=== PATIENT | female | born 1990 | race Asian ===

== ENCOUNTER 2017-02-17 10:55 | Inpatient (IN) | payer SELFPAY ==
[~2017-02-17] VITALS: Ht 160 cm; Wt 60.3 kg
[2017-02-17] MEDS ORDERED: LACTATED RINGERS 1,000 ML IV SCH (11:59)
[2017-02-17] MEDS ORDERED: PREN-380 PO (12:13)
[2017-02-17 12:30] LABS: BASOPHILS % (AUTO) 0.4 % (0.0-2.0); EOSINOPHILS % (AUTO) 0.6 % (0.0-4.0); HEMATOCRIT 38.9 % (36-48); HEMOGLOBIN 12.8 g/dL (12.0-16.0); LYMPHOCYTES # (AUTO) 1.4 K/uL (2.5-16.5); LYMPHOCYTES % (AUTO) 17.5 % (20.5-51.1); MEAN CORPUSCULAR HEMOGLOBIN 30 pg (27-31); MEAN CORPUSCULAR HGB CONC 33 g/dL (33-37); MEAN CORPUSCULAR VOLUME 92 fL (80-94); MONOCYTES # (AUTO) 0.3 K/uL (0.8-1.0); MONOCYTES % (AUTO) 3.6 % (1.7-9.3); NEUTROPHILS # (AUTO) 6.1 K/uL (1.8-7.7); NEUTROPHILS % (AUTO) 77.9 % (42.2-75.2); PLATELET COUNT (AUTO) 172 K/uL (140-450); RED BLOOD CELL COUNT(AUTO) 4.22 MIL/uL (4.20-5.40); RED CELL DISTRIBUTION WIDTH 12.7 % (11.6-13.7); WHITE BLOOD COUNT (AUTO) 7.8 K/uL (4.8-10.8)
[2017-02-17 12:30] LABS: BILIRUBIN,URINE NEGATIVE (NEGATIVE); BLOOD, URINE NEGATIVE (NEGATIVE); COLOR,URINE YELLOW (YELLOW); LEUKOCYTE ESTERASE ,URINE NEGATIVE (NEGATIVE); UGLUCOSE NEGATIVE (NEGATIVE)
[2017-02-17 12:43] LABS: APPEARANCE,URINE SLIGHTLY HAZY (CLEAR); NITRITE, URINE POSITIVE (NEGATIVE); RBC,URINE 0-5 (RARE) /HPF (0-5); WBC,URINE 0-5 (RARE) /HPF (0-5)
[2017-02-17 12:45] LABS: ANION GAP 11.6 (8-16); CARBON DIOXIDE 23.2 mmol/L (21-32); CREATININE 0.6 mg/dL (0.6-1.3); POTASSIUM 3.8 mmol/L (3.5-5.1)
[2017-02-17 12:50] LABS: ALBUMIN 2.5 g/dL (3.4-5.0); TOTAL BILIRUBIN 0.3 mg/dL (0.0-1.0)
[2017-02-17] MEDS ORDERED: TRIAMCINOLONE 10 MG/ML 5ML VIAL ONE (15:22)
[2017-02-17] MEDS ORDERED: OXYTOCIN 10 UNITS/ML VIAL ONE (15:22)
[2017-02-17] MEDS ORDERED: METHYLERGONOVINE 0.2 MG/ML AMP ONE (15:24)
[2017-02-17] MEDS ORDERED: PNEUMOCOCCAL VACCINE 23 MCG/0.5 ML VIAL IMVAC SCH (15:35)
[2017-02-17] MEDS ORDERED: BUPIVACAINE-MPF 0.75% 10 ML VIAL INJ ONE (15:50)
[2017-02-17] MEDS ORDERED: fentaNYL 0.05 MG/ML VIAL ONE (15:59)
[2017-02-17] MEDS ORDERED: MORPHINE PRES FREE 10 MG/10 ML AMP IV ONE (15:59)
[2017-02-17] MEDS ORDERED: ceFAZolin 1,000 MG VIAL IVP ONE (16:00)
[2017-02-17] MEDS ORDERED: ONDANSETRON 4 MG/2 ML VIAL IVP PRN ×2 (16:10)
[2017-02-17] MEDS ORDERED: NALOXONE 0.4 MG/ML VIAL IVP PRN ×3 (16:10)
[2017-02-17] MEDS ORDERED: NALBUPHINE 10 MG/ML AMP IVP PRN (16:10)
[2017-02-17] MEDS ORDERED: KETOROLAC 60 MG/2 ML VIAL IM PRN (16:10)
[2017-02-17] MEDS ORDERED: diphenhydrAMINE 50 MG/ML VIAL ONE (16:23)
[2017-02-17] MEDS ORDERED: ONDANSETRON 4 MG/2 ML VIAL ONE (16:23)
[2017-02-17] MEDS ORDERED: OXYTOCIN 20 UNITS/LR PREMIX 1,000 ML IV ONE (16:23)
[2017-02-17] MEDS ORDERED: oxyCODONE/APAP 5/325 MG 1 TAB TAB PO PRN (16:35)
[2017-02-17] MEDS ORDERED: IBUPROFEN 800 MG TAB PO PRN (16:35)
[2017-02-17] MEDS ORDERED: TRIMETHOBENZAMIDE 200 MG/2 ML SYR IM PRN (16:35)
[2017-02-17] MEDS ORDERED: HYDROcodone/APAP 5/325 MG 1 TAB TAB PO PRN (16:35)
[2017-02-17] MEDS ORDERED: TEMAZEPAM 15 MG CAP PO PRN (16:35)
[2017-02-17] MEDS ORDERED: METHYLERGONOVINE 0.2 MG/ML AMP IM PRN (16:35)
[2017-02-17] MEDS ORDERED: MEASLES, MUMPS, AND RUBELLA 1 VIAL SQVAC PRN (16:35)
[2017-02-17] MEDS: diphenhydrAMINE 50 MG/ML VIAL IVP PRN ×2 (16:55→21:08)
[2017-02-17] MEDS: DOCUSATE SOD/SENNA 50/8.6 MG 1 TAB PO SCH (20:53)
[2017-02-18] MEDS ORDERED: OXYTOCIN 20 UNITS/LR PREMIX 1,000 ML IV ONE (00:18)
[2017-02-18] MEDS: OXYTOCIN 20 UNITS in LACTATED RINGERS 1,000 ML IV SCH ×2 (00:20→08:44)
[2017-02-18 07:30] LABS: BASOPHILS % (AUTO) 0.4 % (0.0-2.0); EOSINOPHILS # (AUTO) 0.1 K/uL (0-0.4); EOSINOPHILS % (AUTO) 0.7 % (0.0-4.0); HEMATOCRIT 38.2 % (36-48); HEMOGLOBIN 12.6 g/dL (12.0-16.0); LYMPHOCYTES # (AUTO) 1.4 K/uL (2.5-16.5); LYMPHOCYTES % (AUTO) 11.2 % (20.5-51.1); MEAN CORPUSCULAR HEMOGLOBIN 30 pg (27-31); MEAN CORPUSCULAR HGB CONC 33 g/dL (33-37); MEAN CORPUSCULAR VOLUME 92 fL (80-94); MONOCYTES # (AUTO) 0.4 K/uL (0.8-1.0); MONOCYTES % (AUTO) 3.7 % (1.7-9.3); NEUTROPHILS # (AUTO) 10.2 K/uL (1.8-7.7); PLATELET COUNT (AUTO) 161 K/uL (140-450); RED BLOOD CELL COUNT(AUTO) 4.17 MIL/uL (4.20-5.40); RED CELL DISTRIBUTION WIDTH 12.4 % (11.6-13.7)
[2017-02-18 07:31] LABS: WHITE BLOOD COUNT (AUTO) 12.1 K/uL (4.8-10.8)
[2017-02-18] MEDS ORDERED: OXYTOCIN 10 UNITS/ML VIAL ONE (08:41)
[2017-02-18] MEDS: SIMETHICONE 80 MG TAB.CHEW PO PRN ×2 (08:44→13:19)
--- NOTE | 2017-02-18 09:11 | NUR ---
PATIENT HAS BEEN SCREENED AND CATEGORIZED LOW NUTRITION RISK. PATIENT WILL BE SEEN WITHIN 7 DAYS OF ADMISSION. 02/23/[address]
[2017-02-18] MEDS: DOCUSATE SOD/SENNA 50/8.6 MG 1 TAB PO SCH (20:51)
[2017-02-19 13:14] LABS: RAPID PLASMA REAGIN NON-REACTIVE (Non Reactiv)
[2017-02-19] MEDS: DOCUSATE SOD/SENNA 50/8.6 MG 1 TAB PO SCH (21:00)
== END 2017-02-20 15:40 | disposition home or self-care (01) | DRG 765 ==
LOC: MLD 11:25 → MFCC 17:40
PROVIDERS: ADMIT Obstetrics & Gynecology; ATTEND Obstetrics & Gynecology
PROC: 10D00Z1 Extraction of Products of Conception, Low, Open Approach (ICD-10-PCS; principal; 2017-02-17 15:30)
DX: O34.211 Maternal care for low transverse scar from previous cesarean delivery (principal); O98.42 Viral hepatitis complicating childbirth; B19.10 Unspecified viral hepatitis B without hepatic coma; Z37.0 Single live birth; O69.81X0 Labor and delivery complicated by cord around neck, without compression, not applicable or unspecified; Z3A.39 39 weeks gestation of pregnancy
CPT/HCPCS: 36415; 51702; 80053; 81001; 85025; 86592; 86886; 86900; 86901; 90715; J0690; J1200; J2210; J2270; J2405; J2590; J3010; J3301; J3490; J7060; J7120